=== PATIENT | male | born 1965 | race Caucasian/White ===

== ENCOUNTER 2025-09-03 13:48 | Outpatient (REF) | payer OTHER, SELFPAY | END 2025-09-03 13:49 | disposition home or self-care (01) | LOC: HO.LAB 13:48 | PROVIDERS: PCP Internal Medicine; Visit Provider Physician Assistant Medical | DX: N30.01 Acute cystitis with hematuria (principal) | CPT/HCPCS: 81003; 87086; 87088; 87186; 99212 ==

== ENCOUNTER 2025-09-03 13:48 | Outpatient (AMB) | payer OTHER, SELFPAY ==
--- NOTE | 2025-09-03 13:56 | AM.OFFWIN_ITS ---
Intake Vital Signs 09/03/25 13:57 Height 5 ft 4 in Weight 230 lb BMI 39.5 BP 122/60 Blood Pressure Location Rt brachial Position Sitting Pulse 70 Pulse Source Pulse Oximeter Temp 98.0 F Temp Source Oral Pulse Oximetry (%) 97 Oxygen Delivery Method Room Air Intake Visit Reasons: EP Possible UTI Intake Note: pt presents with concern for UTI; c/o pain with voiding, cloudy urine, blood in urine for 4 days s/p URI Allergies acetaminophen (Tylenol) Allergy (Mild, Verified 09/03/25 13:58) increases liver enzymes Do you need a note to return to daycare/school/sports/work: No HPI HPI Comments History of Present Illness Details History - The patient is a 60 year old individua l presenting with symptoms suggestive of a urinary tract infection. - Initial symptoms of dysuria began late night or early Wednesday, progressing to severe pain and hematuria. - Managed symptoms with heat application , noting cloudy urine but no further hematuria. - History of kidney stones, experienced twice before, but no prior urinary tract infections recalled. - Mild nausea present, but no back pain, fever, or chills reported. - He denies nausea or vomiting. Physical Exam General: Cooperative, healthy appearing, comfortable, no acute distress and well developed Cardiac: Normal S1 and S2. RRR, no M/R/G noted. Respiratory: Normal respiratory effort and able to speak in complete sentences. Clear to auscultation bilaterally. No w/r/r noted. Skin: No rashes or lesions noted. GI: Normal inspection. Normal BS noted. Soft, non-tender, non-distended. Mild tenderness in the upper abdomen. No guarding or rebound tenderness noted. Back: Negative CVA bilaterally Patient was informed and verbally consented to the use of an ambient scribe for clinic note documentation during this visit. Review of Systems Const All systems reviewed & are unremarkable except as noted in HPI and below Physical Exam Vital Signs: Last Vital Signs Temp 98.0 F 09/03/25 13:57 Pulse 70 09/03/25 13:57 BP 122/60 09/03/25 13:57 Pulse Ox 97 09/03/25 13:57 Oxygen Delivery Method Room Air 09/03/25 13:57 BMI result Body Mass Index 39.5 Results AMB Urinalysis, Automated UA Leukoctes 70 Eda/uL Last Edit by Sophia Crabtree CMA on 09/03/25 14:23 1+ Sophia Crabtree 09/03/25 14:23 UA Nitrite Negative Last Edit by Sophia Crabtree CMA on 09/03/25 14:23 UA Urobilinogen 0.2 mg/dL Last Edit by Sophia Crabtree CMA on 09/03/25 14:2 3 UA Protein 30 mg/dL Last Edit by Sophia Crabtree CMA on 09/03/25 14:23 1+ Sophia Crabtree 09/03/25 14:23 UA pH 7.0 Last Edit by Sophia Crabtree CMA on 09/03/25 14:23 UA Blood 80 Alex/uL Last Edit by Sophia Crabtree CMA on 09/03/25 14:23 2+ Sophia Crabtree 09/03/25 14:23 UA Specific Leblanc 1.010 Last Edit by Sophia Crabtree CMA on 09/03/25 14: 23 UA Ketone Negative Last Edit by Sophia Crabtree CMA on 09/03/25 14:23 UA Bilirubin 0 mg/dL Last Edit by Sophia Crabtree CMA on 09/03/25 14:23 UA Glucose 1000 mg/dL Last Edit by Sophia Crabtree CMA on 09/03/25 14:23 3+ Sophia Crabtree 09/03/25 14:23 Results Reviewed Results Reviewed: Laboratory Last Values Urine pH (Auto) 7.0 09/03/25 14:21 Specific Leblanc (Auto) 1.010 09/03/25 14:21 Urine Protein (Auto) 30 mg/dL H* 09/03/25 14:21 Glucose (UA)(Auto) 1000 mg/dL H* 09/03/25 14:21 Urine Ketones (Auto) Negative 09/03/25 14:21 Urine Blood (Auto) 80 Alex/uL H* 09/03/25 14:21 Urine Nitrite (Auto) Negative 09/03/25 14:21 Urine Bilirubin (Auto) 0 mg/dL 09/03/25 14:21 Urine Urobilinogen (Auto) 0.2 mg/dL 09/03/25 14:21 Leukocyte Esterase (Auto) 70 Eda/uL H* 09/03/25 14:21 Assessment & Plan Assessment & Plan (1) UTI (urinary tract infection): Code(s): N39.0 - Urinary tract infection, site not specified Qualifiers: Urinary tract infection type: acute cystitis Hematuria presence: with hematuria Qualified Code(s): N30.01 - Acute cystitis with hematuria Plan Most likely UTI vs stone UA 1+leuko, 1+pro, 2+blood, 3+glucose Plan - Drink lots of fluids. - Initiate antibiotic therapy for suspected urinary tract infection. - Send urine sample for culture to confirm bacterial presence and antibiotic sensitivity. - Advise increased fluid intake to aid in symptom relief and infection clearance. - Plan to adjust antibiotic treatment based on urine culture results if necessary. Orders: Orders Urine Culture Today N39.0 - Urinary tract infection, site not specified AMB Urinalysis Automated Today Z13.9 - Encounter for screening, unspecified Medications: New cefuroxime axetil 500 mg PO Q12H 10 tabs 0RF Coding Level of Care Code Est Pt Level 3 (61161) Diagnoses Acute cystitis with hematuria N30.01 Urinary tract infection type: acute cystitis Hematuria presence: with hematuria
[2025-09-03 13:57] VITALS: BP 122/60; PULSE 70; TEMP 36.7; O2SAT 97; BMI 39.5
--- OUTSIDE RECORDS SUMMARY | 2025-09-03 18:38 | XMS_ITS | Clinical Summary ---
Author Organization [employer] Address [address] [facility] [address] [place] [address] Care Team Providers Care Cardiac Exercise Physiologist Name Role Phone Unavailable Primary Care Provider Unavailabl e Allergies Active Allergy Reactions Criticality Noted Date Comments Acetaminophen 09/17/2022 Bring up the liver enzymes Medications Suboxone 8-2 MG SL film 2 Active buPROPion XL (Wellbutrin XL) 150 MG 24 hr tablet Take 150 mg by mouth in the morning. 2 Active Diclofenac Sodium 1 % gel APPLY FOUR GRAM TO THE AFFECTED AREA(s) FOUR TIMES DAILY NEEDED FOR PAIN 2 Active FLUoxetine (PROzac) 20 MG capsule TAKE THREE CAPSULES AT BEDTIME 2 Active furosemide (Lasix) 80 MG tablet TAKE 2 TABLET BY MOUTH EVERY MORNING, 1 TABLET IN THE AFTERNOON AND 2 TABLET BY MOUTH AT NIGHT 2 Active potassium chloride CR (Klor-Con) 10 MEQ ER tablet TAKE TWO TABLETS BY MOUTH THREE TIMES DAILY 2 Active simvastatin (Zocor) 20 MG tablet Take 20 mg by mouth at bedtime. 2 Active Social History Tobacco Use Types Packs/Day Years Used Date Smoking Tobacco: Former Cigarettes Smokeless Tobacco: Never Tobacco Cessation:Counseling Given: Not Answered Sex and Gender Information Value Date Recorded Sex Assigned at Male 08/10/2022 10:23 AM EDT Legal Sex Male 10:23 AM EDT Gender Identity Male 09/17/2022 9:29 AM EST Sexual Orientation Not on file Plan of Treatment Health Maintenance Due Date Last Done Comments CT Colonography 1963 Colonoscopy 1963 Colorectal Cancer Screening 1963 Dental Oral Exam 1963 Dental Prophylaxis 1963 Dental X-Ray: Full Mouth 1963 Depression Screening 1963 FIT DNA/Cologuard 1963 FIT 1963 FOBT 1963 HIV Screening 1963 Lipid Panel 1963 SDOH Screening 1963 Sigmoidoscopy 1963 Disability Screening 1963 Alcohol/Substance Use Screening 1975 Hepatitis C Screening 1981 Pneumococcal Vaccine: 50+ Years (1 of 1 - PCV) 2013 Tobacco Screening 09/17/2023 09/17/2022 Dental X-Ray: Bitewings 09/18/2023 09/17/2022 DTaP/Tdap/Td Vaccines (2 - Td or Tdap) 08/21/2024 08/21/2014 COVID-19 Vaccine (3 - season) 2025 02/10/2021, 01/20/2021 Influenza Vaccine (#1) 2025 , 06/01/2020, 06/06/2018, Additional history exists RSV Patients and Patients Aged 60 years or older (1 - 1-dose 75+ series) 2038 Zoster Vaccines Completed 01/07/2022, 07/05/2021 HIB Vaccines Aged Out No longer eligi ble based on patient's age to complete this topic HPV Vaccines Aged Out No longer eligi ble based on patient's age to complete this topic Hepatitis A Vaccines Aged Out No long er eligible based on patient's age to complete this topic Hepatitis B Vaccines Aged Out No long er eligible based on patient's age to complete this topic IPV Vaccines Aged Out No longer eligi ble based on patient's age to complete this topic Meningococcal B Vaccine Aged Out No l onger eligible based on patient's age to complete this topic Meningococcal Vaccine Aged Out No meño lex eligible based on patient's age to complete this topic RSV under 20 months Aged Out No longe r eligible based on patient's age to complete this topic Rotavirus Vaccines Aged Out No longer eligible based on patient's age to complete this topic Procedures Procedure Name Priority Date/Time Associated Diagnosis Comments BITEWING - SINGLE RADIOGRAPHIC IMAGE Routine 09/17/2022 1:00 PM EST from Last 3 Months or Most Recently Relevant to Health Maintenance Insurance
--- OUTSIDE RECORDS SUMMARY | 2025-09-03 18:38 | XMS_ITS | Encounter Summary ---
Author Organization [facility] Address [address] [place] [address] Care Team Providers Care Production Recovery Operator Name Role Phone Michael Villalobos MD Primary Care Provider [phone] Reason for Visit * Reason Onset Date Comments Urinary Problem 09/03/2025 Encounter Details Date Type Department Care Team ([facility] st Contact Info) Description 09/03/2025 Nurse Triage Adult Medicine [address] [phone] Michael Villalobos MD [address] [place] [address] Social History Tobacco Use Types Packs/Day Years Used Date Smoking Tobacco: Former Cigarettes 0.5 32.4 0 10/11/1982 - 03/11/2015 Smokeless Tobacco: Never Alcohol Use Standard Drinks/Week Comments No 0 (1 standard drink = 0.6 oz pur e alcohol) Sex and Gender Information Value Date Recorded Sex Assigned at Not on file Legal Sex Male 9:52 PM EST Gender Identity Not on file Sexual Orientation Not on file documented as of this encounter Progress Notes * Sunita Butler RN - 09/03/2025 12:05 PM EST He was instructed to go to an [facility] for further evaluation and treatment. He is in agreement with this plan. Reason for Disposition Blood in urine (red, pink, or tea-colored) Answer Assessment - Initial Assessment Questions 1. SEVERITY: How bad is the pain? (e.g., Scale 1-10; mild, moderate, or severe) He rates the pain as 4/10 2. FREQUENCY: How many times have you had painful urination today? 3 3. PATTERN: Is pain present every time you urinate or just sometimes? Every time 4. ONSET: When did the painful urination start? 08/31/25 5. FEVER: Do you have a fever? If Yes, ask: What is your temperature, how was it measured, and when did it start? No fever 6. PAST UTI: Have you had a urine infection before? If Yes, ask: When was the last time? and What happened that time? No. 7. CAUSE: What do you think is causing the painful urination? ? UTI 8. OTHER SYMPTOMS: Do you have any other symptoms? (e.g., flank pain, penis discharge, scrotal pain, blood in urine) Blood in urine. He states it is a moderate amount of blood with no clots. Protocols used: Urination Pain - Male-A-AH * Shaista Norman - 09/03/2025 11:28 AM EST Patient call requires triage: Symptoms patient is presenting: Possible UTI/ Blood in urine How long has patient had these symptoms?: 3 days For ALL patients calling to schedule any appointment (routine, sick visit, follow up, consult, etc.) in the outpatient setting please ask the following questions: Do you have fever of higher than 101, sore throat with difficulty swallowing or severe shortness ofbreath? no If YES to any of these above symptoms, send a message to triage and do not book. Red dot. If no, an audio or video visit should be booked. Have you had close contact with someone with Coronavirus in the last 14 days? no Have you traveled abroad? no Have you traveled recently to another state outside of [place], [place], [place], [place], [place], [place], [place]? no o If yes, did you quarantine for 14 days or have a negative covid test? no If yes to any of the above, patient is not to be scheduled in office until after 14 day quarantine or negative covid test. If pain or injury related was it due to an accident at work or from a motor vehicle accident? If yes, date of accident/Injury: No If yes, gather 3rd alliance party insurance information Third Democrat Information: not applicable PCP: Michael Villalobos MD Payor: [employer] / Plan: [facility] MEDICAID / Product Type: *No Product type* / documented in this encounter Plan of Treatment Upcoming Encounters Date Type Department Care Team (Late st Contact Info) Description 09/26/2025 2:30 PM EST Medication Management Adult [address] [phone] Rahel Jenkins PharmD [address] [place] [address] 10/03/2025 4:00 PM EST Consult Endocrinology [address] [phone] Nicolas Jain MD [address] [place] [address] 12/26/2025 3:00 PM EDT Office Visit [address] [phone] Vickey Montemayor PA [address] [place] [address] documented as of this encounter Visit Diagnoses Not on filedocumented in this encounter Additional Health Concerns Assessment Noted Time PHQ-9 Depression Total Score: 2 08/28/20 25 1:32 PM EST documented as of this encounter Care Teams Production Recovery Operator Relationship Specialty Start Date End Date Michael Villalobos MD [address] [place] [address] PCP - General Internal Medicine 03/19/14 documented as of this encounter
--- OUTSIDE RECORDS SUMMARY | 2025-09-03 18:38 | XMS_ITS | Encounter Summary ---
Author Organization [facility] Address [address] [place] [address] Care Team Providers Care Rn Traveling Name Role Phone Michael Villalobos MD Primary Care Provider [phone] Encounter Details Date Type Department Care Team (Late Contact Info) Description 09/03/2025 Telephone Adult Medicine [address] [phone] Michael Villalobos MD [address] [place] [address] Social History Tobacco Use Types Packs/Day Years [...] on file documented as of this encounter Plan of Treatment Upcoming Encounters Date Type Department Care Team (Late Contact Info) Description 09/26/2025 2:30 PM EST Medication Management Adult Medicine [address] [phone] Rahel Jenkins, PharmD [address] [place] [address] 10/03/2025 4:00 PM EST Consult Endocrinology [address] [phone] Nicolas Jain MD [address] [place], [place] 12/26/2025 3:00 PM EDT Office Visit Adult Medicine [address] [phone] Vickey Montemayor PA [address] [place] [address] documented as of this encounter Visit Diagnoses Not on filedocumented in this encounter Additional Health Concerns Assessment Noted Time PHQ-9 Depression Total Score: 2 08/28/20 25 1:32 PM EST documented as of this encounter Care Teams Rn Traveling Relationship Specialty Start Date End Date Michael Villalobos MD [address] [place] [phone] PCP - General Internal Medicine 03/19/14 documented as of this encounter
--- OUTSIDE RECORDS SUMMARY | 2025-09-03 18:38 | XMS_ITS | Clinical Summary ---
Author Organization [facility] [address] [place] [address] [place] [phone] Phone Care Team Providers Care Cat Driver Name Role Phone Michael Villalobos MD Primary Care Provider [phone] Allergies Active Allergy Reactions Criticality Noted Date Comments Acetaminophen Other 06/19/2014 Elevates liver enzymes Medications FREESTYLE LANCETS MISC Use to check sugars twice daily. 023 Active blood sugar diagnostic (FreeStyle Lite Strips) test strip 1 Strip by In Vitro route 2 times daily. 023 Active buprenorphine-na loxone (SUBOXONE) 8-2 mg [address] film Place 2 films under the tongue. Active medical supply, miscellaneous (MISCELLANEOUS MEDICAL SUPPLY MISC) Inhale into the lungs. [employer]-ASV EPAP 8 -15 pressure support 15-25 auto respiratory rate 016 Active empagliflozin (Jardiance) 25 mg tablet Take 1 tablet (25 mg total) by mouth 1 (one) time each day. Increase in dose 90 tablet 1 025 Active buPROPion XL (WELLBUTRIN XL) 150 mg 24 hr tablet TAKE ONE TABLET EVERY MORNING 90 tablet 1 025 Active simvastatin (ZOCOR) 20 mg tablet TAKE ONE TABLET EVERY NIGHT AT BEDTIME 90 tablet 1 025 Active tirzepatide (Mounjaro) 5 mg/0.5 mL injectionIndicat ions:Type 2 diabetes mellitus with peripheral circulatory disorder (CMS/HCC V24, CMS/HCC V28) Inject 0.5 mL (5 mg total) under the skin every 7 (seven) days. Increase in dose 2 mL 1 025 Active torsemide 40 mg tablet Take 40 mg by mouth 2 (two) times a day. Replaces furosemide 180 tablet Active blood-glucose meter kit Inject 1 each under the skin 1 (one) time each day. Freestyle Lite glucometer. Please use wellsense coupon. Use to check sugars daily 1 each Active fluticasone propionate (FLONASE) 50 mcg/actuation nasal spray Administer 2 sprays into each nostril 1 (one) time each day. Shake gently. Before first use, prime pump. After use, clean tip and replace cap. 16 g 025 2025 Active cetirizine (ZyrTEC) 10 mg tablet Take 1 tablet (10 mg total) by mouth 1 (one) time each day. 90 each 1 Active benzonatate (TESSALON) 100 mg capsule Take 1 capsule (100 mg total) by mouth 3 (three) times a day if needed for cough. Do not crush or chew. 21 capsule Active potassium chloride (KLOR-CON) 10 mEq CR tabletIndication s:Essential (primary) hypertension,Lym phedema, not elsewhere classified TAKE TWO TABLETS THREE TIMES DAILY 540 tablet 1 Active blood-glucose meter kit Inject 1 each under the skin 1 (one) time each day. Freestyle Lite glucometer. Please use wellsense coupon. Use to check sugars daily 1 each 025 2024 Discontinued(R eorder) potassium chloride (KLOR-CON) 10 mEq CR tabletIndication s:Essential (primary) hypertension,Lym phedema, not elsewhere classified TAKE TWO TABLETS THREE TIMES DAILY 540 tablet 1 025 2024 Discontinued torsemide 40 mg tablet Take 40 mg by mouth 2 (two) times a day. Replaces furosemide 180 tablet 025 2024 Discontinued(R eorder) Active Problems Problem Noted Date Diagnosed Date Edema 04/20/2022 Hypertension 04/20/2022 Overview (07/27/2024): Last Assessment & Plan: Blood pressure is elevated today states it is normally not no changes today he can follow-up with primary care since he does not need cardiac follow-up at this time for further blood pressure treatment Radial styloid tenosynovitis (de quervain) 05/28 Type 2 diabetes mellitus wit h peripheral circulatory disorder ([facility], [facility] V28) 03/21/2021 Lymphedema of both lower extremities 02/15/2019 Venous insufficiency 08/17/2018 Overview (07/27/2024): Last Assessment & Plan: Patient with lower extremity edema that is treated very effectively with Lasix. Etiology not clear could be elevated pulmonary pressures from sleep apnea. But he is effectively being treated with diuretic therapy at this point no further testing is necessary unless he develops edema that cannot be controlled with medical management. Cholelithiasis 07/11/2018 Trigger middle finger of left hand 11/23/2017 Complex sleep apnea syndrome 09/24/2015 Nocturnal hypoxemia 09/24/2015 Hypercholesteremia 03/22/2014 Anxiety 03/20/2014 Opiate addiction ([facility] V24, [facility] V28) 03/11 Overview (07/27/2024): In Suboxone program Encounters Date Type Department Care Team Description 09/03/2025 Nurse Triage [address] [phone] Michael Villalobos MD 09/03/[address] [phone] Michael Villalobos MD 09/01/2025 Results Follow-Up [address] [phone] Vickey Montemayor PA 08/28/2025 2:15 PM EST Lab Draw [address] Type 2 diabetes mellitus with peripheral circulatory disorder ([facility] V[facility], [facility] V28); Hypercholesteremia; Hypertension, unspecified type 08/28/2025 1:30 PM EST Office Visit Adult [address] [place] [phone] Vickey Montemayor PA Type 2 diabetes mellitus with peripheral circulatory disorder (CMS/HCC V24, CMS/HCC V28) (Primary Dx); Anxiety; Hypertension, unspecified type; Hypercholesteremia; Lymphedema of both lower extremities; Acute cough; Body aches; Sinus pressure from Last 3 Months Immunizations Immunization Administration Dates Next Due Influenza Quadravalent, MDCK , 0.5ml, preservative free (Flucelvax) 6mo and older 11/27/2022 Influenza Quadravalent, MDCK , 0.5ml, with preservative (Flucelvax) 6mo and older 06/21/2017 Influenza Quadrivalent, 0.5m l, preservative free (Fluarix; FluLaval; Fluzone) ages 6mo and older (Afluria) 3yo and older 07/05/2021,06/01/2020,06/06/2018 Influenza trivalent, 0.5mL, preservative free (Fluarix; FluLaval; Fluzone) ages 6mo and older (Afluria) 3 years and older 07/05/2021,06/01/2020,06/06/2018,07/01,08/12/2015,06/18/2014,09/18/2013 Influenza trivalent, with pr eservative (Fluzone; Afluria) 6mo and older 06/18/2014 Influenza, Unspecified 05/30/2019,06/18/2014 Pneumococcal polysaccharide 23 valent (Pneumovax 23) 2yo and older 11/27/2022 Tdap Tetanus diptheria acell ular pertussis (Boostrix; Adacel) 7yo and older 04/26/2025,08/21/2014 Zoster recombinant (Shingrix ) 19yo and older 01/07/2022,07/05/2021 Surgical History Surgery Date Site/Laterality Comments HAND SURGERY 07/02/2021 Right PROCEDURE: HISTORICAL HAND SURGERY; COMMENT: First dorsal compartment release with Dr. Figueroa for de Quervain's tenosynovitis CARPAL TUNNEL RELEASE Bilateral PROCEDURE: HISTORICAL CARPAL TUNNEL REL TONSILLECTOMY PROCEDURE: HISTORICAL TONSILLECTOMY HERNIA REPAIR PROCEDURE: HISTORICAL HERNIA REPAIR/UMB Medical History Medical History Date Comments Anxiety 03/20/2014 DX:Anxiety Opiate addiction (CMS/HCC V24, CMS/HCC V28) 03/20 DX:Opiate addiction ([facility]) Hypercholesteremia 03/22/2014 DX:Hyperchole steremia Edema DX:Edema; COMMEN T: Ankles Family History Medical History Relation Name Comments Breast cancer Aunt 2nd primary br ca at age 45; maternal aunt Diabetes Father Hypertension Father Prostate cancer Father and bone ca Heart attack Maternal Grandfather Other: stomach cancer Maternal Grandfather Other: esophageal cancer Maternal Grandmother Hypertension Mother Melanoma Mother Heart attack Paternal Grandfather Relation Name Status Comments Aunt Father Maternal Grandfather Maternal Grandmother Mother Paternal Grandfather Social History Tobacco Use Types Packs/Day Years Used Date Smoking Tobacco: Former Cigarettes 0.5 32.4 0 10/11/1982 - 03/11/2015 Smokeless Tobacco: Never Tobacco Cessation:Counseling Given: Not Answered Alcohol Use Standard Drinks/Week Comments No 0 (1 standard drink = 0.6 oz pur e alcohol) Sex and Gender Information Value Date Recorded Sex Assigned at Not on file Legal Sex Male 9:52 PM EST Gender Identity Not on file Sexual Orientation Not on file Obstetrics History Last Filed Vital Signs Vital Sign Reading Time Taken Comments Blood Pressure 120/60 08/28/2025 1:31 PM EST Pulse 82 08/28/2025 1:31 PM EST Temperature 35.6 C (96.1 F) 08/28/2025 1:31 PM EST Respiratory Rate 18 04/26/2025 4:06 PM EDT Oxygen Saturation 98% 08/28/2025 1:31 PM EST Inhaled Oxygen Concentration - - Weight 107 kg (235 lb 14.4 oz) 08/28/2025 1:31 P M EST Height 165.6 cm (5' 5.2 ) 08/28/2025 1:31 PM EST Body Mass Index 39.02 08/28/2025 1:31 PM EST Plan of Treatment Upcoming Encounters Date Type Department Care Team (Late st Contact Info) Description 09/26/2025 2:30 PM EST Medication Management Adult Medicine [facility] [address] [place] [phone] Rahel Jenkins, PharmD [address] [place] [phone] 10/03/2025 4:00 PM EST Consult Endocrinology [address] [phone] Nicolas Jain MD [address] [place] [address] 12/26/2025 3:00 PM EDT Office Visit Adult Medicine [facility] - [address] [phone] Vickey Montemayor PA [address] [place] [address] Health Maintenance Due Date Last Done Comments Diabetes: Annual Foot Exam 1973 Diabetes: Annual Retina Eye Exam 1973 Hepatitis A Vaccines (1 of 2 - Risk 2-dose series) 1982 RSV Immunization Adult Patients (1 - Risk 50-74 years 1-dose series) 2013 HIV Screening 09/19/2022 Social Influencers of Health Screening 09/19/2022 Pneumococcal Vaccine: 50+ Years (2 of 2 - PCV) 11/27/2023 11/27/2022 COVID-19 Vaccine (3 - season) 2025 02/10/2021, 01/20/2021 Influenza Vaccine (#1) 2025 , 07/05/2021, 07/05/2021, Additional history exists Diabetes: Annual Urine Albumin-Creatinine Ratio (uACR) 12/25/2025 12/25/2024, 07/25/2024 Diabetes: Blood Sugar Control Test (HGBA1C) 02/25/2026 08/28/2025, 05/01/2025, 12/25/2024, Additional history exists Diabetes: Annual GFR (Glomerular Filtration Rate) 08/28/2026 08/28/2025, 05/01/2025, 01/23/2025, Additional history exists Hypertension/CHF/CAD Annual BMP Blood Test 08/28/2026 08/28/2025, 05/01/2025, 01/23/2025, Additional history exists Colorectal Cancer Screening: Colonoscopy 10/06/2026 10/06/2016 Cholesterol Screening (Lipid Panel) 08/28/2030 08/28/2025, 12/25/2024, 07/25/2024, Additional history exists DTaP,Tdap,and Td Vaccines (3 - Td or Tdap) 04/26/2035 04/26/2025, 08/21/2014 Hepatitis C Screening Completed 07/29/2016 Zoster Vaccines Completed 01/07/2022, 07/05/2021 Depression Screening Completed 08/28/2025, 07/20/20 HIB Vaccines Aged Out No longer eligi [...] on patient's age to complete this topic MMR Vaccines Aged Out No longer eligi ble based on patient's age to complete this topic Meningococcal ACWY Vaccine Aged Out N o longer eligible based on patient's age to complete this topic Meningococcal B Vaccine Aged Out No l onger eligible based on patient's age to complete this topic RSV Immunization Patients Under 20 months Aged Out No longer eligible based on patient's age to complete this topic Varicella Vaccines Aged Out No longer eligible based on patient's age to complete this topic Procedures Procedure Name Priority Date/Time Associated Diagnosis Comments HEMOGLOBIN A1C Routine 08/28/2025 2:26 PM EST Type 2 diabetes mellitus with peripheral circulatory disorder ([facility]/HCC V24, CMS/HCC V28) BASIC METABOLIC PANEL Routine 08/28/2025 2:26 PM EST Type 2 diabetes mellitus with peripheral circulatory disorder (CMS/HCC V24, CMS/HCC V28) Hypertension, unspecified type LIPID PANEL WITH REFLEX TO DIRECT LDL Routine 08/28/2025 2:26 PM EST Type 2 diabetes mellitus with peripheral circulatory disorder (CMS/HCC V24, CMS/[facility] V28) Hypercholesteremia [id number], RSV, FLU A AND B QUALITATIVE RT-PCR, LOCAL REFERENCE LAB Routine 08/28/2025 2:13 PM EST Acute cough Body aches Sinus pressure MICROALBUMIN CREATININE URINE RATIO Routine 12/25/2024 3:02 PM EDT Type 2 diabetes mellitus with peripheral circulatory disorder (CMS/HCC V24, CMS/HCC V28) Microalbuminuria DEPRESSION SCREENING Routine 07/20/2024 COLONOSCOPY Routine 10/06/2016 HEPATITIS C SCREENING Routine 07/29/2016 from Last 3 Months or Most Recently Relevant to Health Maintenance Results * (ABNORMAL) Lipid panel with reflex to direct LDL (08/28/2025 2:26 PM EST) Cholesterol 103 0 - 200 mg/dL 08/28/2025 5:11 PM [facility] Triglycerides 89 0 - 150 mg/dL 08/28/2025 5:11 PM [facility] HDL 36(L) >=40 mg/dL 08/28/2025 5:11 PM [facility] LDL Calculated 49 0 - 100 mg/dL 08/28/2025 5:11 PM [facility] Comment:Estimated LDL Calcul ated using equation: Total cholesterol - HDL cholesterol - (Triglycerides/5) VLDL Cholesterol Ben 17.8 mg/dL 08/28/2025 5:11 PM [facility] Non HDL Chol. (LDL+VLDL) 67 <145 mg/dL 08/28/2025 5:11 PM [facility] Chol/HDL Ratio 2.9 0.0 - 4.4 08/28/2025 5:11 PM [facility] Blood Venous blood specimen / Unknown Venipuncture / Unknown 08/28/2025 2:26 PM EST 08/28/2025 2:26 PM EST Vickey MOON LAB BLOOD ORDERABLES Fi nal Result [facility] [address] [place] [address], [place] [phone] * Hemoglobin A1c (08/28/2025 2:26 PM EST) [facility] Hemoglobin A1C 5.6 <6.5 % LAB CHEMISTRY METHOD 08/28/2025 9:56 PM EST [facility] Mean Bld Glu Estim. 114 mg/dL LAB CHEMISTRY METHOD 08/28/2025 9:56 PM [facility] Blood Venous blood specimen / Unknown Venipuncture / Unknown 08/28/2025 2:26 PM EST 08/28/2025 2:26 PM EST Vickey MOON LAB BLOOD ORDERABLES Fi nal Result Performing Organization Address [facility]/ZIP Co de Phone Number [facility] [address] [place] [address], [place] [phone] * (ABNORMAL) Basic metabolic panel (08/28/2025 2:26 PM EST) [facility] Sodium 135 133 - 145 mmol/L 08/28/2025 5:11 PM [facility] Potassium 3.7 3.5 - 5.5 mmol/L 08/28/2025 5:11 PM [facility] Chloride 94(L) 96 - 110 mmol/L 08/28/2025 5:11 PM [facility] CO2 29 21 - 32 mmol/L 08/28/2025 5:11 PM [facility] Anion Gap 12(H) 3 - 11 08/28/2025 5:11 PM [facility] Glucose 98 70 - 100 mg/dL 08/28/2025 5:11 PM EST [facility] BUN 11 5 - 25 mg/dL 08/28/2025 5:11 PM [facility] Creatinine 1.17 0.70 - 1.30 mg/dL 08/28/2025 5:11 PM [facility] eGFR 70 >=60 mL/min/1. 73m2 08/28/2025 5:11 PM [facility] Comment:Calculation based on the Chronic Kidney Disease Epidemiology Collaboration (CKD-EPI) equation refit without adjustment for race. BUN/Creatinine Ratio 9.4 08/28/2025 5:11 PM [facility] Calcium 7.7(L) 8.5 - 10.5 mg/dL 08/28/2025 5:11 PM [facility] Blood Venous blood specimen / Unknown Venipuncture / Unknown 08/28/2025 2:26 PM EST 08/28/2025 2:26 PM EST Vickey MOON LAB BLOOD ORDERABLES Fi nal Result [facility] [address] [place] [address], * [id number], RSV, Influenza A and B qualitative RT-PCR (08/28/2025 2:13 PM EST) SARS COV-2 Not Detected Not Detected LAB MOLECULAR DIAGNOSTICS METHOD 08/29/2025 9:10 AM EST [facility] Comment: Disclaimer: The manner in which this information is used to guide patient care is the responsibility of the healthcare provider. Testing was performed using the [employer] Alinity m SARS-CoV-2 test. This test has been authorized by FDA under an Emergency Use Authorization (EUA). This test is only authorized for the duration of time the declaration that circumstances exist justifying the authorization of the emergency use of in vitro diagnostic tests for detection of SARS-CoV-2 virus and/or diagnosis of COVID-19 infection under section 564(b)(1) of the Act, 21 U.S.C. 360bbb- 3(b)(1), unless the authorization is terminated or revoked sooner. Fact sheet for Healthcare Providers can be found at: https://www.fda.gov/media/842496/download Fact sheet for Patients can be found at: https://www.fda.gov/media/644027/download Influenza A PCR Not Detected Not Detected LAB MOLECULAR DIAGNOSTICS METHOD 08/29/2025 9:10 AM EST [facility] Influenza B PCR Not Detected Not Detected LAB MOLECULAR DIAGNOSTICS METHOD 08/29/2025 9:10 AM [facility] RSV PCR Not Detected Not Detected LAB MOLECULAR DIAGNOSTICS METHOD 08/29/2025 9:10 AM [facility] Swab Nasopharyngeal structure / Unknown Non-blood Collection / Unknown 08/28/2025 2:13 PM EST 08/28/2025 2:13 PM EST Vickey MOON LAB MICROBIOLOGY - GENE RAL ORDERABLES Final Result [facility] [address] [place] [address], * Microalbumin creatinine urine ratio (12/25/2024 3:02 PM EDT) Creatinine, Urine 40.0 mg/dL LAB CHEMISTRY METHOD 12/25/2024 5:15 PM EDT [facility] Microalb, Ur 11.7 0.0 - 29.0 mg/L LAB CHEMISTRY METHOD 12/25/2024 5:15 PM EDT [facility] Microalb/Creat Ratio 29 <30 mg/g creat LAB CHEMISTRY METHOD 12/25/2024 5:15 PM EDT [facility] Urine Urine specimen obtained by clean catch procedure / Unknown Non-blood Collection / Unknown 12/25/2024 3:02 PM EDT 12/25/2024 3:02 PM EDT Michael Villalobos MD LAB URINE ORDERABLES Final Resu lt [facility] ([facility]) [facility] [address] [place] [address], [place] [phone] * Depression Screening (07/20/2024) Depression Screening abstracted Historical Provider HEALTH MAINTENANCE Final Result * Colonoscopy (10/06/2016) Colonoscopy abstracted, no interpretation Anatomical Region Laterality Modality Other Historical Provider HEALTH MAINTENANCE Final Result * Hepatitis C Screening (07/29/2016) Hepatitis C Screening abstracted Historical Provider HEALTH MAINTENANCE Final Result from Last 3 Months or Most Recently Relevant to Health Maintenance Insurance [facility] Advance Directives Documents on File Type Date Recorded 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
--- OUTSIDE RECORDS SUMMARY | 2025-09-03 18:38 | XMS_ITS | Encounter Summary ---
Author Organization [facility] Address [address] [place] [address] Care Team Providers Care Organizational Development Manager Name Role Phone Michael Villalobos MD Primary Care Provider [phone] Encounter Details Date Type Department Care Team (Late Contact Info) Description 09/01/2025 Results Follow-Up Adult [address] [phone] Vickey Montemayor PA [address] [place] [address] Social History Tobacco Use Types Packs/Day Years [...] 09/26/2025 2:30 PM EST Medication Management Adult [address] [phone] Rahel Jenkins, PharmD [address] [place] [address] 10/03/2025 4:00 PM EST Consult Endocrinology [address] [phone] Nicolas Jain MD [address] [place] [address] 12/26/2025 3:00 PM EDT Office Visit Adult Medicine [address] [phone] Vickey Montemayor PA [address] [place] [address] documented as of this encounter Visit Diagnoses Not on filedocumented in this encounter Additional Health Concerns Assessment Noted Time PHQ-9 Depression Total Score: 2 08/28/20 25 1:32 PM EST documented as of this encounter Care Teams Organizational Development Manager Relationship Specialty Start Date End Date Michael Villalobos MD [address] [place] [address] PCP - General Internal Medicine 03/19/14 documented as of this encounter
--- OUTSIDE RECORDS SUMMARY | 2025-09-03 18:38 | XMS_ITS ---
Author Name [facility] Organization [facility] Care Team Organization Name Specialty Phone Email Start Date End Da te [facility] Primary Care 08/18/2022 4
== END 2025-09-03 14:36 | disposition home or self-care (01) ==
PROVIDERS: PCP Internal Medicine; Visit Provider Physician Assistant Medical
DX: Z13.9 Encounter for screening, unspecified (principal); N30.01 Acute cystitis with hematuria